=== PATIENT | male | born 1995 | race Caucasian/White ===

== ENCOUNTER 2021-04-27 17:43 | Emergency (ER) | payer OTHER, SELFPAY ==
[2021-04-27 17:57] VITALS: BP 113/68; PULSE 68; RESP 18; TEMP 37.2; O2SAT 100
--- NOTE | 2021-04-27 18:07 | ED.URI ---
HPI - URI/Sore Throat General Chief Complaint: Upper Respiratory Infection Stated Complaint: headache,sorethroat Time Seen by Provider: 04/27/21 17:45 Source: patient Mode of arrival: ambulatory Limitations: no limitations History of Present Illness HPI Narrative: 25-year-old male presents to [facility] with complaints of fevers up to 103, headache, sore throat, chest congestion for the past 2 days. Patient denies cough, runny nose or ear pain. Patient denies sick contacts. Patient has been drinking hot tea and taking [id number] Tylenol with minimal relief. Patient is COVID vaccinated but not influenza vaccine. Patient denies nausea, vomiting or diarrhea. Patient is a non-smoker. Patient has had his tonsils removed as a child MD elicited complaint: fever, sore throat and nasal congestion Onset (ago): day(s) (2) Exacerbating factors: nothing Relieving factors: nothing Treatments prior to arrival: acetaminophen Related Data Allergies Allergy/AdvReac Type Severity Reaction Status Date / Time No Known Allergies Allergy Verified 04/27/21 18:06 Review of Systems Constitutional: Constitutional: Denies fatigue, Reports fever(s) and Denies weakness ENT: Denies dysphagia, Denies dizziness, Denies epistaxis and Reports sore throat Cardiovascular: Cardiovascular: Denies chest pain and Denies radiating jaw, neck or arm pain Respiratory: Respiratory: Reports chest congestion, Reports cough, Denies dyspnea and Denies wheezing Gastrointestinal: Gastrointestinal: Denies abdominal pain, Denies diarrhea, Denies nausea and Denies vomiting Integumentary/Breasts: Skin/Breast: Denies rash Neurologic: Denies dizziness PMFSH Past Medical History Medical History (Updated 04/27/21 @ 18:21 by Julia Lundberg APRN) Tonsillectomy planned Social History Social History (Updated 04/27/21 @ 18:11 by Julia Lundberg APRN) Smoking status: Never smoker Comments At time of signature, I agree with nursing past medical, surgical, social and family history. There is no relevant family history pertinent to the presenting complaint. Exam Const: General: no acute distress and alert Nutritional Appearance: well nourished Orientation/consciousness: patient oriented x3 HENMT: Ears: external ears normal, TM's normal bilaterally and EAC's normal Face and sinus: sinuses nontender Mouth: Yes moist mucous membranes Teeth and gingiva: dentition normal Throat: uvula midline Other: Mild erythema noted to posterior pharynx. Tonsils are absent Neck: Neck: normal visual inspection Resp: Effort & Inspection: normal respiratory effort, not labored and not tachypneic Auscultation: clear to auscultation bilaterally Cardio: Rate: regular rate, not bradycardic and not tachycardic Rhythm: regular rhythm Skin: General skin exam: normal color, no jaundice and no pallor Rashes: no rashes Neuro: General: patient oriented x3, moves all extremities and no meningeal signs Psych: Appearance: grossly normal Affect: normal affect Attitude: cooperative Thought content: Yes Normal thought content present Course Course Level of Care: Express Care Visit Vital Signs Vital signs: Vital Signs Temperature 37.2 C 04/27/21 17:57 Pulse Rate 68 04/27/21 17:57 Respiratory Rate 18 04/27/21 17:57 Blood Pressure 113/68 04/27/21 17:57 Pulse Oximetry 100 04/27/21 17:57 Temperature 37.2 C 04/27/21 17:57 Pulse Rate 68 04/27/21 17:57 Respiratory Rate 18 04/27/21 17:57 Blood Pressure 113/68 04/27/21 17:57 Pulse Oximetry 100 04/27/21 17:57 MDM - URI/Sore Throat MDM Narrative Medical decision making narrative: Positive COVID results discussed with patient. Patient understands that he is to self quarantine per CDC guidelines. Patient agrees to take [id number] Tylenol Motrin as needed. Patient agrees to use warm salt water gargles as needed. Patient agrees to proceed to the emergency room if symptoms worsen Different
== END 2021-04-27 18:27 | disposition home or self-care (01) ==
PROVIDERS: Emergency Provider Nurse Practitioner Family; PCP Nurse Practitioner
DX: U07.1 COVID-19 (principal)
CPT/HCPCS: 87081; 87426; 87804; 87880; 99213; C9803; G0463